=== PATIENT | female | born 1970 | race Caucasian/White ===

== ENCOUNTER 2020-07-27 08:11 | Emergency (ER) | payer SELFPAY ==
[2020-07-27] MEDS ORDERED: Acetaminophen 500 MG TAB ONE (09:21)
[2020-07-27] MEDS ORDERED: Boostrix 0.5 ML (Tdap) VIAL ONE (09:21)
[2020-07-27] MEDS ORDERED: Ibuprofen 800 MG TAB ONE (09:21)
== END 2020-07-27 09:47 | disposition home or self-care (01) ==
LOC: ERS 08:11
DX: L03.011 Cellulitis of right finger (principal); F17.210 Nicotine dependence, cigarettes, uncomplicated
CPT/HCPCS: 10060; 90471; 90715